=== PATIENT | male | born 1955 | race Caucasian/White ===

== ENCOUNTER 2017-10-26 07:15 | Day surgery (SDC) | payer OTHER ==
[~2017-10-26] VITALS: Ht 188 cm; Wt 95.4 kg
[2017-10-26] MEDS ORDERED: CARVEDILOL ER40 MG PO (07:43)
[2017-10-26] MEDS ORDERED: LEVODOPA25 GM (07:44)
[2017-10-26] MEDS ORDERED: ASPI81CH PO (07:44)
[2017-10-26] MEDS ORDERED: NIFE60ER PO (07:45)
[2017-10-26] MEDS ORDERED: Micro-K8 MEQ (07:45)
[2017-10-26] MEDS ORDERED: TELM40 PO (07:46)
[2017-10-26] MEDS ORDERED: SOLI5 PO (07:46)
== END 2017-10-26 09:38 | disposition home or self-care (01) ==
LOC: ORSCSDS 07:15
PROVIDERS: Internal Medicine Gastroenterology
PROC: 0DBM8ZX Excision of Descending Colon, Via Natural or Artificial Opening Endoscopic, Diagnostic (ICD-10-PCS; principal; 2017-10-26 08:30)
PROC: 0DBH8ZX Excision of Cecum, Via Natural or Artificial Opening Endoscopic, Diagnostic (ICD-10-PCS; principal; 2017-10-26 08:30)
PROC: 0DBN8ZX Excision of Sigmoid Colon, Via Natural or Artificial Opening Endoscopic, Diagnostic (ICD-10-PCS; principal; 2017-10-26 08:30)
DX: Z12.11 Encounter for screening for malignant neoplasm of colon (principal); D12.0 Benign neoplasm of cecum; D12.4 Benign neoplasm of descending colon; D12.5 Benign neoplasm of sigmoid colon; K64.8 Other hemorrhoids; I10 Essential (primary) hypertension; J45.909 Unspecified asthma, uncomplicated; G20 Parkinson's disease; Z79.82 Long term (current) use of aspirin; Z79.899 Other long term (current) drug therapy
CPT/HCPCS: 88305; J7120

== ENCOUNTER 2018-09-01 07:00 | Day surgery (SDC) | payer OTHER ==
[~2018-09-01] VITALS: Ht 188 cm; Wt 100.0 kg
[~2018-09-01 07:00] MED LIST: ASPI81CH PO; ATOR20 PO; B-121000 MC1 SL; BAYER CHEWABLE81 MG PO; CARVEDILOL ER40 MG PO; Hydrocodone-Ap1 EA23 PO; LEVODOPA25 GM; Micro-K8 MEQ; NIFE60ER PO; POTCHL10ER PO; SOLI5 PO; TELM40 PO
[2018-09-01] MEDS ORDERED: SINEMET 25-1001 EACH PO (07:28)
--- NOTE | 2018-09-01 12:03 | NUR ---
PT PREVIOUSLY UP TO RESTROOM, RIGHT FEMORAL ACCESS SITE APPEARS TO BE WNL. PT'S ASSISTING HIM WITH GETTING DRESSED AND SHOES ON. PT DENIES PAIN. VERBALIZED UNDERSTANDING OF D/C INSTRUCTIONS. IV REMOVED FROM [place] WITH CATH INTACT. PRESSURE DRESSING APPLIED. PAPERWORK PROVIDED. TAKEN OUT TO VEHICLE VIA W/C WITH NADN AT TIME OF DISPO. ENCOURAGED TO FOLLOW UP SCHEDULED. CALL FOR ANY CONCERNS TO [facility]. VSS.
== END 2018-09-01 12:49 | disposition home or self-care (01) ==
LOC: MHTC 07:00
DX: I25.119 Atherosclerotic heart disease of native coronary artery with unspecified angina pectoris (principal); I10 Essential (primary) hypertension; J45.909 Unspecified asthma, uncomplicated; G20 Parkinson's disease; M19.90 Unspecified osteoarthritis, unspecified site; Z79.899 Other long term (current) drug therapy; Z79.82 Long term (current) use of aspirin
CPT/HCPCS: 85347; 93454; 93571; 99152; 99153; C1760; C1769; C1887; J1644; J2250; J3010; J7030; Q9967

== ENCOUNTER 2019-04-23 13:55 | Emergency (ER) | payer OTHER, MEDICARE ==
[~2019-04-23] VITALS: Ht 185.4 cm; Wt 95.2 kg
[~2019-04-23 13:55] MED LIST changes: +SINEMET 25-1001 EACH PO
== END 2019-04-23 16:14 | disposition home or self-care (01) ==
LOC: ER 13:55
DX: K59.00 Constipation, unspecified (principal); Z79.899 Other long term (current) drug therapy; Z79.82 Long term (current) use of aspirin
CPT/HCPCS: 74018; 99283-25

== ENCOUNTER 2019-06-22 01:51 | Emergency (ER) | payer OTHER, MEDICARE ==
[~2019-06-22] VITALS: Ht 188 cm; Wt 90.7 kg
[2019-06-22] MEDS ORDERED: Nifediac Cc60 MG PO (02:13)
[2019-06-22] MEDS ORDERED: Nitrofurantoin100 M1 PO (02:13)
[2019-06-22] MEDS ORDERED: TRAZ50 PO (02:14)
[2019-06-22] MEDS ORDERED: TAMSULOSIN HCL0.4 M1 PO (02:14)
[2019-06-22] MEDS ORDERED: NEURONTIN300 MG PO (02:14)
[2019-06-22] MEDS ORDERED: NITR100CA PO (02:16)
[2019-06-22 02:51] LABS: BASOPHILS ABSOLUTE AUTO 0.03 K/mm3 (0.00-0.23); BASOPHILS PERCENT AUTO 1 % (0-2); EOSINOPHILS PERCENT AUTO 2 % (0-6); Hematocrit 38.2 % (37.0-53.0); Hemoglobin 13.5 g/dL (13.5-17.5); IMMATURE GRAN ABSOLUTE AUTO 0.01 K/mm3 (0.00-0.10); IMMATURE GRAN PERCENT AUTO 0 % (0-1); LYMPHOCYTES ABSOLUTE AUTO 1.77 K/mm3 (0.84-5.20); LYMPHOCYTES PERCENT AUTO 40 % (21-46); MONOCYTES ABSOLUTE AUTO 0.26 K/mm3 (0.16-1.47); MONOCYTES PERCENT AUTO 6 % (4-13); Mean Corpuscular HGB 30.5 pg (26.0-34.0); Mean Corpuscular HGB Conc 35.3 g/dL (31.5-36.5); Mean Corpuscular Volume 86 fL (80-100); NEUTROPHILS ABSOLUTE AUTO 2.21 K/mm3 (1.96-9.15); NEUTROPHILS PERCENT AUTO 51 % (41-73); Platelet Count 130 K/mm3 (150-400); RDW Coefficient Variation 13.1 % (11.7-14.2); RDW Standard Deviation 40.8 fL (35.1-46.3); Red Blood Cell Count 4.42 M/mm3 (4.30-5.90); White Blood Cell Count 4.38 K/mm3 (4.00-11.30)
[2019-06-22 03:43] LABS: Alanine Aminotransfer (ALT/SGP 6 U/L (12-78); Albumin, Blood 3.7 g/dL (3.4-5.0); Albumin/Globulin Ratio 1.5 (0.8-1.8); Alk Phos 88 U/L (50-136); Anion Gap 6 mmol/L (6-16); Aspartate Aminotrans (AST/SGOT 6 U/L (12-37); Blood Urea Nitrogen 6 mg/dL (8-24); Bun/Creatinine Ratio 9.4 (12.0-20.0); CO2, Blood 27 mmol/L (21-32); Calcium, Blood 9.1 mg/dL (8.5-10.1); Chloride, Blood 111 mmol/L (98-108); Creatinine, Blood 0.64 mg/dL (0.60-1.20); Globulin, Blood 2.4 g/dL (2.2-4.0); Glomerular Filtration Rate >60 (60-); Glucose, Blood 97 mg/dL (70-99); Potassium, Blood 2.8 mmol/L (3.5-5.5); Sodium, Blood 144 mmol/L (136-145); Total Protein, Blood 6.1 g/dL (6.4-8.2); Troponin I <0.015 ng/mL (0.000-0.040)
== END 2019-06-22 04:15 | disposition home or self-care (01) ==
LOC: ER 01:51
PROVIDERS: Emergency Medicine
DX: R42 Dizziness and giddiness (principal); T42.6X5A Adverse effect of other antiepileptic and sedative-hypnotic drugs, initial encounter; T45.0X5A Adverse effect of antiallergic and antiemetic drugs, initial encounter; G20 Parkinson's disease; Z88.2 Allergy status to sulfonamides; Z88.1 Allergy status to other antibiotic agents; Z79.899 Other long term (current) drug therapy
CPT/HCPCS: 36415; 80053; 84484; 85025; 93005; 93010; 96360; 99284-25; J7030

== ENCOUNTER 2019-06-24 22:17 | Emergency (ER) | payer OTHER, MEDICARE ==
[~2019-06-24] VITALS: Ht 185.4 cm; Wt 81.7 kg
[~2019-06-24 22:17] MED LIST changes: +NEURONTIN300 MG PO; +NITR100CA PO; +Nifediac Cc60 MG PO; +Nitrofurantoin100 M1 PO; +TAMSULOSIN HCL0.4 M1 PO; +TRAZ50 PO
[2019-06-24] MEDS ORDERED: Ambien10 MG PO (22:52)
== END 2019-06-24 23:47 | disposition home or self-care (01) ==
LOC: ER 22:17
DX: G47.00 Insomnia, unspecified (principal); R35.0 Frequency of micturition; F41.8 Other specified anxiety disorders; Z96.0 Presence of urogenital implants
CPT/HCPCS: 99283

== ENCOUNTER 2019-07-02 19:13 | Observation (INO) | payer MEDICARE, OTHER ==
[~2019-07-02] VITALS: Ht 185.4 cm; Wt 81.2 kg
[~2019-07-02 19:13] MED LIST changes: +Ambien10 MG PO
[2019-07-02 19:34] LABS: BASOPHILS ABSOLUTE AUTO 0.07 K/mm3 (0.00-0.23); BASOPHILS PERCENT AUTO 1 % (0-2); EOSINOPHILS ABSOLUTE AUTO 0.12 K/mm3 (0.00-0.68); EOSINOPHILS PERCENT AUTO 2 % (0-6); Hematocrit 42.4 % (37.0-53.0); Hemoglobin 14.9 g/dL (13.5-17.5); IMMATURE GRAN ABSOLUTE AUTO 0.01 K/mm3 (0.00-0.10); IMMATURE GRAN PERCENT AUTO 0 % (0-1); LYMPHOCYTES PERCENT AUTO 30 % (21-46); MONOCYTES ABSOLUTE AUTO 0.26 K/mm3 (0.16-1.47); MONOCYTES PERCENT AUTO 5 % (4-13); Mean Corpuscular HGB 30.4 pg (26.0-34.0); Mean Corpuscular HGB Conc 35.1 g/dL (31.5-36.5); Mean Corpuscular Volume 87 fL (80-100); NEUTROPHILS ABSOLUTE AUTO 3.34 K/mm3 (1.96-9.15); NEUTROPHILS PERCENT AUTO 62 % (41-73); Platelet Count 162 K/mm3 (150-400); RDW Coefficient Variation 12.9 % (11.7-14.2); RDW Standard Deviation 40.2 fL (35.1-46.3)
[2019-07-02 19:56] LABS: Alanine Aminotransfer (ALT/SGP 7 U/L (12-78); Albumin/Globulin Ratio 1.5 (0.8-1.8); Alk Phos 96 U/L (50-136); Anion Gap 2 mmol/L (6-16); Aspartate Aminotrans (AST/SGOT 5 U/L (12-37); Bilirubin, Total 1.3 mg/dL (0.1-1.0); Blood Urea Nitrogen 17 mg/dL (8-24); Bun/Creatinine Ratio 25.9 (12.0-20.0); CO2, Blood 29 mmol/L (21-32); Calcium, Blood 9.7 mg/dL (8.5-10.1); Chloride, Blood 106 mmol/L (98-108); Creatinine, Blood 0.66 mg/dL (0.60-1.20); Ethanol (Alcohol), Blood, Med <3 mg/dL; Globulin, Blood 2.7 g/dL (2.2-4.0); Glomerular Filtration Rate >60 (60-); Glucose, Blood 115 mg/dL (70-99); Salicylate <1.7 mg/dL (2.8-20.0); Sodium, Blood 137 mmol/L (136-145); Total Protein, Blood 6.7 g/dL (6.4-8.2)
[2019-07-02] MEDS ORDERED: CARVEDILOL6.25 MG PO (21:48)
[2019-07-02] MEDS ORDERED: TAMSULOSIN HCL0.4 M1 PO (21:50)
[2019-07-02] MEDS ORDERED: TRAZ50 PO (21:50)
[2019-07-02] MEDS ORDERED: Carbidopa-Levo1 EAC4 PO (21:51)
[2019-07-02 22:45] LABS: Acetaminophen, Random 19.2 ug/mL (10.0-30.0); Salicylate <1.7 mg/dL (2.8-20.0)
[2019-07-03] MEDS ORDERED: ATORVASTATIN CA20 MG PO (00:17)
[2019-07-03] MEDS ORDERED: LORAZEPAM1 MG PO (00:17)
[2019-07-03] MEDS ORDERED: TELMISARTAN40 MG PO (00:17)
[2019-07-03 08:23] LABS: Source, Urine Voided
[2019-07-03 08:32] LABS: Bilirubin, Urine Neg (Neg); Blood, Urine Neg (Neg); Glucose Qualitative, Urine Neg (Neg); Ketones, Urine Neg (Neg); Leukocyte Esterase, Urine Neg (Neg); Nitrite, Urine Neg (Neg); Protein, Urine Neg (Neg); Urobilinogen, Urine NORM (Normal)
[2019-07-03 08:34] LABS: Appearance, Urine Clear (Clear); Color, Urine Yellow (P-Yellow)
[2019-07-03 08:49] LABS: U Amphetamine Screen Not Detected; U Barbituate Screen Not Detected; U Benzodiazapine Screen Not Detected; U Buprenorphine Screen Not Detected; U Cannabinoids Screen Not Detected; U Cocaine Screen Not Detected; U Methadone Screen Not Detected; U Methamphetamine Screen Not Detected; U Opiates Screen DETECTED; U Oxycodone Screen Not Detected; U Propoxyphene Screen Not Detected
[2019-07-03 20:40] LABS: Hematocrit 37.5 % (37.0-53.0); Hemoglobin 13.1 g/dL (13.5-17.5)
[2019-07-03 20:58] LABS: Anion Gap 3 mmol/L (6-16); Blood Urea Nitrogen 22 mg/dL (8-24); CO2, Blood 30 mmol/L (21-32); Calcium, Blood 9.2 mg/dL (8.5-10.1); Chloride, Blood 102 mmol/L (98-108); Creatinine, Blood 0.79 mg/dL (0.60-1.20); Glomerular Filtration Rate >60 (60-); Glucose, Blood 87 mg/dL (70-99); Potassium, Blood 3.7 mmol/L (3.5-5.5); Sodium, Blood 135 mmol/L (136-145)
--- NOTE | 2019-07-04 00:12 | NUR ---
PT. ARRIVED FROM ED CRISIS UNIT. A&OX3, PLEASANT AND COOPERATIVE WITH CARE. PT. DETERMINED A LOW RISK SI. SI ASSESSMENT NEG FOR SI RISK. PT. IS A 1-2 ASSIST TO BSC. DENIES ANY PAIN OR DISCOMFORT, CALLS APPROPRIATELY. RESTING COMFORTABLY IN BED, NO APPARENT DISTRESS NOTED. CALL LIGHT WITHIN REACH, SIDE RAILS UP X2, AND BED ALARM ON FOR SAFETY. WILL CONT TO MONITOR.
--- NOTE | 2019-07-04 04:33 | NUR ---
SHIFT SUMMARY- PT. ASLEEP T/O THE NIGHT. NO APPARENT DISTRESS NOTED. NO ACUTE CHANGES TO CONDITION. CALL LIGHT WITHIN REACH, SIDE RAILS UP X2, AND BED ALARM ON FOR SAFETY. WILL CONT TO MONITOR.
--- NOTE | 2019-07-04 14:21 | NUR ---
Patient is lying in the dark and alert. Patient tells me that he was overwhelmed by the pain of his current medical issues and in despair over the progression of disease that he faces for the future. He talks about how Parkinson disease "messes with my mind." He shares about his personal struggles (mental, emotional and spiritual). Patient explains some of his latter day beliefs. I listen empathically, explore sources of meaning and value, provide emotional support, pastoral grief counselor, companionship and prayer. Patient responds well and shows signs of improved hope. I will continue to remain available to patient and family.
--- NOTE | 2019-07-04 17:32 | NUR ---
SHIFT SUMMARY PT HAS HAD NO COMPLAINTS THIS SHIFT. DR. YAÑEZ IN TO SEE PT THIS AFTERNOON AND CHANGED SEROQUEL MEDICATION DOSE FOR THE EVENING. PT UP TO BATHROOM WITH ASSIST. NO ACUTE CHANGES THIS SHIFT. WILL CONTINUE TO MONITOR AND REPORT TO ONCOMING RN. CALL LIGHT IN REACH.
--- NOTE | 2019-07-05 04:52 | NUR ---
SHIFT SUMMARY: VSS. AFEB. A/OX3. PT QUIET AND NON-COMMUNICATIVE TONIGHT. DOES NOT REPORT WET BRIEFS BUT WILL STATE WHETHER HE IS WET OR DRY WHEN ASKED. STATES URINARY INCONTINENCE IS NEW FOR HIM IN THE PAST SEVERAL WEEKS. AFFECT IS FLAT AND WITHDRAWN. PT DENYING SUICIDAL IDEATION. APPEARS TO HAVE BEEN SLEEPING MUCH OF THE NIGHT. NO ACUTE CHANGES, WILL CONT TO MONITOR.
[2019-07-05 05:26] LABS: BASOPHILS ABSOLUTE AUTO 0.04 K/mm3 (0.00-0.23); BASOPHILS PERCENT AUTO 1 % (0-2); EOSINOPHILS ABSOLUTE AUTO 0.09 K/mm3 (0.00-0.68); EOSINOPHILS PERCENT AUTO 2 % (0-6); Hemoglobin 13.1 g/dL (13.5-17.5); IMMATURE GRAN PERCENT AUTO 0 % (0-1); LYMPHOCYTES ABSOLUTE AUTO 1.47 K/mm3 (0.84-5.20); LYMPHOCYTES PERCENT AUTO 39 % (21-46); MONOCYTES ABSOLUTE AUTO 0.28 K/mm3 (0.16-1.47); MONOCYTES PERCENT AUTO 8 % (4-13); Mean Corpuscular HGB 30.5 pg (26.0-34.0); Mean Corpuscular HGB Conc 34.5 g/dL (31.5-36.5); Mean Corpuscular Volume 88 fL (80-100); Mean Platelet Volume 9.7 fL (9.1-12.4); NEUTROPHILS ABSOLUTE AUTO 1.86 K/mm3 (1.96-9.15); NEUTROPHILS PERCENT AUTO 50 % (41-73); Platelet Count 138 K/mm3 (150-400); RDW Coefficient Variation 13.1 % (11.7-14.2); RDW Standard Deviation 42.6 fL (35.1-46.3); White Blood Cell Count 3.74 K/mm3 (4.00-11.30)
[2019-07-05 05:36] LABS: Anion Gap 6 mmol/L (6-16); Blood Urea Nitrogen 24 mg/dL (8-24); Bun/Creatinine Ratio 26.1 (12.0-20.0); CO2, Blood 28 mmol/L (21-32); Calcium, Blood 9.5 mg/dL (8.5-10.1); Chloride, Blood 108 mmol/L (98-108); Creatinine, Blood 0.92 mg/dL (0.60-1.20); Glomerular Filtration Rate >60 (60-); Glucose, Blood 93 mg/dL (70-99); Potassium, Blood 3.8 mmol/L (3.5-5.5); Sodium, Blood 142 mmol/L (136-145)
[2019-07-05] MEDS ORDERED: ACET500 PO (11:37)
[2019-07-05] MEDS ORDERED: MIRALAX17 GM PO (11:37)
[2019-07-05] MEDS ORDERED: QUET100 PO (11:37)
[2019-07-05] MEDS ORDERED: QUET25 PO (11:38)
--- NOTE | 2019-07-05 15:06 | NUR ---
DISCHARGE PT DISCHARGED TO HOME. THIS RN EXPLAINED DISCHARGE INSTRUCTIONS TO PT AND PT'S SPOUSE. THEY REPORT THEY UNDERSTAND. SUICIDE HOT LINE NUMBER GIVEN TO PT. PT WAS GIVEN NAMES OF COUNSELORS FROM DR. SWANSON. PT REQUESTED TO CANCEL WHEELCHAIR RIDE. PT AND FAMILY REPORT THEY WILL BE ABLE TO GET PT UP THE TWO STAIRS INTO HIS HOUSE. RIDE WAS CANCELLED BY NALLELY. MEDICATIONS FAXED TO REQUESTED PHARMACY. PT TRANSFERRED TO PRIVATE VEHICLE VIA WHEELCHAIR BY [employer]. BELONGINGS WITH PT'S SPOUSE.
== END 2019-07-05 14:32 | disposition home health service (06) ==
LOC: ER 19:13 → EOR 19:14 → MEDS 19:14 → EOR 19:14 → MEDS 07-03 21:47 → ENPENDDIS 07-05 13:56 → MEDS 07-05 14:32
PROVIDERS: Emergency Medicine; Family Medicine; Internal Medicine; ADMIT Emergency Medicine
DX: F32.9 Major depressive disorder, single episode, unspecified (principal); G20 Parkinson's disease; T40.2X2A Poisoning by other opioids, intentional self-harm, initial encounter; T42.6X2A Poisoning by other antiepileptic and sedative-hypnotic drugs, intentional self-harm, initial encounter; I25.10 Atherosclerotic heart disease of native coronary artery without angina pectoris; I10 Essential (primary) hypertension; Z88.8 Allergy status to other drugs, medicaments and biological substances; Z88.2 Allergy status to sulfonamides; Z74.09 Other reduced mobility; Z79.899 Other long term (current) drug therapy
CPT/HCPCS: 36415; 80048; 80053; 81003; 85014; 85018; 85025; 90686; 93005; 93010; 96372; 97116; 97162; 97530; 99285-25; A9270-GY; G0008; G0378; G0480; J1650

== ENCOUNTER 2019-08-18 14:36 | Emergency (ER) | payer MEDICARE, OTHER ==
[~2019-08-18] VITALS: Ht 185.4 cm; Wt 79.4 kg
[~2019-08-18 14:36] MED LIST changes: +ACET500 PO; +ATORVASTATIN CA20 MG PO; +Ativan1 MG PO; +CARVEDILOL6.25 MG PO; +Carbidopa-Levo1 EAC4 PO; +MIRALAX17 GM PO; +QUET100 PO; +QUET25 PO; +TELMISARTAN40 MG PO
[2019-08-18 15:48] LABS: BASOPHILS ABSOLUTE AUTO 0.02 K/mm3 (0.00-0.23); BASOPHILS PERCENT AUTO 0 % (0-2); EOSINOPHILS ABSOLUTE AUTO 0.02 K/mm3 (0.00-0.68); EOSINOPHILS PERCENT AUTO 0 % (0-6); Hemoglobin 14.4 g/dL (13.5-17.5); IMMATURE GRAN ABSOLUTE AUTO 0.03 K/mm3 (0.00-0.10); IMMATURE GRAN PERCENT AUTO 0 % (0-1); LYMPHOCYTES ABSOLUTE AUTO 0.84 K/mm3 (0.84-5.20); LYMPHOCYTES PERCENT AUTO 10 % (21-46); MONOCYTES ABSOLUTE AUTO 0.29 K/mm3 (0.16-1.47); MONOCYTES PERCENT AUTO 4 % (4-13); Mean Corpuscular HGB 31.6 pg (26.0-34.0); Mean Corpuscular HGB Conc 35.1 g/dL (31.5-36.5); Mean Corpuscular Volume 90 fL (80-100); Mean Platelet Volume 9.8 fL (9.1-12.4); NEUTROPHILS ABSOLUTE AUTO 7.07 K/mm3 (1.96-9.15); NEUTROPHILS PERCENT AUTO 86 % (41-73); Platelet Count 107 K/mm3 (150-400); RDW Coefficient Variation 12.3 % (11.7-14.2); RDW Standard Deviation 40.5 fL (35.1-46.3); Red Blood Cell Count 4.55 M/mm3 (4.30-5.90); White Blood Cell Count 8.27 K/mm3 (4.00-11.30)
[2019-08-18 15:59] LABS: Alanine Aminotransfer (ALT/SGP 8 U/L (12-78); Albumin, Blood 3.2 g/dL (3.4-5.0); Alk Phos 72 U/L (50-136); Anion Gap 6 mmol/L (6-16); Aspartate Aminotrans (AST/SGOT 7 U/L (12-37); Bilirubin, Total 1.1 mg/dL (0.1-1.0); Blood Urea Nitrogen 28 mg/dL (8-24); Bun/Creatinine Ratio 26.4 (12.0-20.0); CO2, Blood 28 mmol/L (21-32); Calcium, Blood 9.6 mg/dL (8.5-10.1); Chloride, Blood 105 mmol/L (98-108); Creatinine, Blood 1.06 mg/dL (0.60-1.20); Globulin, Blood 3.2 g/dL (2.2-4.0); Glomerular Filtration Rate >60 (60-); Glucose, Blood 101 mg/dL (70-99); Potassium, Blood 3.9 mmol/L (3.5-5.5); Sodium, Blood 139 mmol/L (136-145); Total Protein, Blood 6.4 g/dL (6.4-8.2)
[2019-08-18 16:08] LABS: Bilirubin, Urine Neg (Neg); Blood, Urine 5+ (Neg); Glucose Qualitative, Urine Neg (Neg); Ketones, Urine 1+ (Neg); Leukocyte Esterase, Urine 3+ (Neg); Nitrite, Urine Pos (Neg); Protein, Urine 3+ (Neg); Source, Urine Clean Catch; Urobilinogen, Urine NORM (Normal)
[2019-08-18] MEDS ORDERED: ALPR.25 PO (16:13)
[2019-08-18 16:15] LABS: Appearance, Urine Turbid (Clear); Color, Urine Yellow (P-Yellow)
[2019-08-18] MEDS ORDERED: ESCI10 PO (16:15)
[2019-08-18 16:16] LABS: Red Blood Cells, Urine TNTC /hpf (0-2); Squamous Epithelial Cells Rare /hpf (Few); White Blood Cells, Urine TNTC /hpf (0-5)
[2019-08-18 16:17] LABS: Bacteria Many /hpf
[2019-08-18] MEDS ORDERED: TAMS.4ER PO (16:17)
[2019-08-18] MEDS ORDERED: TROSPIUM CHLORI20 MG PO (16:19)
[2019-08-18] MEDS ORDERED: ZOLP10 PO (16:19)
[2019-08-18] MEDS ORDERED: CEPH500 PO (17:45)
[2019-08-18] MEDS ORDERED: Pyridium100 MG PO (17:45)
== END 2019-08-18 18:04 | disposition home or self-care (01) ==
LOC: ER 14:36
PROVIDERS: Emergency Medicine
DX: N39.0 Urinary tract infection, site not specified (principal); G20 Parkinson's disease; I10 Essential (primary) hypertension; F32.9 Major depressive disorder, single episode, unspecified; Z88.2 Allergy status to sulfonamides; Z88.1 Allergy status to other antibiotic agents; Z79.899 Other long term (current) drug therapy
CPT/HCPCS: 36415; 51798; 74018; 80053; 81001; 85025; 87077; 87086; 87186; 96361; 96365; 99284-25; G0103; J0696; J7030

== ENCOUNTER 2019-10-05 15:20 | Observation (INO) | payer OTHER, MEDICARE ==
[~2019-10-05] VITALS: Ht 185.4 cm; Wt 73.1 kg
[~2019-10-05 15:20] MED LIST changes: +ALPR.25 PO; +CEPH500 PO; +ESCI10 PO; +Pyridium100 MG PO; +TAMS.4ER PO; +TROSPIUM CHLORI20 MG PO; +ZOLP10 PO
[2019-10-05] MEDS ORDERED: MIRALAX17 GM PO (15:35)
[2019-10-05] MEDS ORDERED: ATOR20 PO (15:35)
[2019-10-05] MEDS ORDERED: TELM40 PO (15:35)
[2019-10-05] MEDS ORDERED: ACET500 PO (15:35)
[2019-10-05] MEDS ORDERED: Carbidopa-Levo1 EAC1 PO (15:36)
[2019-10-05] MEDS ORDERED: Carbidopa-Levo1 EAC4 PO (15:36)
[2019-10-05] MEDS ORDERED: CARVEDILOL12.5 MG PO (15:38)
[2019-10-05] MEDS ORDERED: LORA.5 PO (15:39)
[2019-10-05] MEDS ORDERED: NIFE60ER PO (15:39)
[2019-10-05] MEDS ORDERED: ESCI10 PO (15:40)
[2019-10-05] MEDS ORDERED: POTA10T PO (15:40)
[2019-10-05] MEDS ORDERED: TROSPIUM CHLORI20 MG PO (15:41)
[2019-10-05] MEDS ORDERED: ZOLP10 PO (15:41)
[2019-10-05] MEDS ORDERED: Aspir 8181 MG PO (15:41)
[2019-10-05] MEDS ORDERED: ALPR.25 PO (15:42)
[2019-10-05] MEDS ORDERED: CEFU250T47 PO (15:42)
[2019-10-05] MEDS ORDERED: MIRT15 PO (15:42)
[2019-10-05 15:55] LABS: BASOPHILS ABSOLUTE AUTO 0.04 K/mm3 (0.00-0.23); BASOPHILS PERCENT AUTO 1 % (0-2); EOSINOPHILS PERCENT AUTO 2 % (0-6); Hematocrit 38.7 % (37.0-53.0); Hemoglobin 13.3 g/dL (13.5-17.5); IMMATURE GRAN ABSOLUTE AUTO 0.01 K/mm3 (0.00-0.10); IMMATURE GRAN PERCENT AUTO 0 % (0-1); LYMPHOCYTES ABSOLUTE AUTO 1.65 K/mm3 (0.84-5.20); LYMPHOCYTES PERCENT AUTO 39 % (21-46); MONOCYTES ABSOLUTE AUTO 0.15 K/mm3 (0.16-1.47); MONOCYTES PERCENT AUTO 4 % (4-13); Mean Corpuscular HGB 30.4 pg (26.0-34.0); Mean Corpuscular HGB Conc 34.4 g/dL (31.5-36.5); Mean Corpuscular Volume 89 fL (80-100); NEUTROPHILS ABSOLUTE AUTO 2.32 K/mm3 (1.96-9.15); NEUTROPHILS PERCENT AUTO 55 % (41-73); RDW Coefficient Variation 12.5 % (11.7-14.2); RDW Standard Deviation 40.7 fL (35.1-46.3); Red Blood Cell Count 4.37 M/mm3 (4.30-5.90); White Blood Cell Count 4.27 K/mm3 (4.00-11.30)
[2019-10-05 16:01] LABS: Mean Platelet Volume 9.2 fL (9.1-12.4); Platelet Count 135 K/mm3 (150-400)
[2019-10-05 16:18] LABS: Bilirubin, Urine Neg (Neg); Blood, Urine Neg (Neg); Glucose Qualitative, Urine Neg (Neg); Ketones, Urine Neg (Neg); Leukocyte Esterase, Urine 1+ (Neg); Nitrite, Urine Neg (Neg); Protein, Urine Neg (Neg); Urobilinogen, Urine NORM (Normal)
[2019-10-05 16:21] LABS: Appearance, Urine Clear (Clear); Color, Urine Yellow (P-Yellow)
[2019-10-05 16:21] LABS: Alanine Aminotransfer (ALT/SGP 7 U/L (12-78); Albumin, Blood 3.2 g/dL (3.4-5.0); Albumin/Globulin Ratio 1.1 (0.8-1.8); Alk Phos 74 U/L (50-136); Anion Gap 5 mmol/L (6-16); Aspartate Aminotrans (AST/SGOT 15 U/L (12-37); Bilirubin, Total 0.9 mg/dL (0.1-1.0); Blood Urea Nitrogen 19 mg/dL (8-24); Bun/Creatinine Ratio 26.4 (12.0-20.0); CO2, Blood 27 mmol/L (21-32); Calcium, Blood 9.4 mg/dL (8.5-10.1); Chloride, Blood 109 mmol/L (98-108); Creatinine, Blood 0.72 mg/dL (0.60-1.20); Glomerular Filtration Rate >60 (60-); Glucose, Blood 93 mg/dL (70-99); Potassium, Blood 4.3 mmol/L (3.5-5.5); Sodium, Blood 141 mmol/L (136-145); Total Protein, Blood 6.2 g/dL (6.4-8.2)
[2019-10-05 16:31] LABS: Bacteria Mod /hpf; Red Blood Cells, Urine 0-2 /hpf (0-2); Squamous Epithelial Cells Few /hpf (Few)
[2019-10-05] MEDS ORDERED: ISOSORBIDE MONO30 MG PO (17:35)
[2019-10-05] MEDS ORDERED: NITROGLYCERIN0.4 M3 SL (17:36)
[2019-10-05] MEDS ORDERED: GENERLAC10 GM/15 M PO (18:25)
--- NOTE | 2019-10-06 04:40 | NUR ---
SHIFT SUMMARY PT NEW ED ADMIT THIS EVENING. PLEASANT AND COOPERATIVE. PT VERY WEAK. PT HAS PARKINSONS AND HAS BEEN RAPIDLY DECLINING AT HOME. PT REPORTS BEING TOO WEAK TO GET OUT OF BED AT THIS TIME. REDDENED AREA TO COCCYX, POSSIBLE STAGE ONE PRESSURE ULCER. PT TURNED FREQUENTLY WHILE IN THE BED. OTHERWISE SKIN APPEARS TO C/D/I. HOME CONDOM CATH ON. NO COMPLAINTS OF PAIN THIS EVENING. VITAL SIGNS STABLE. PT REQUESTING TO SPEAK WITH SCIENTIFIC INFORMATICS LEADER REGARDING HOSPICE OPTIONS. HOSPICE REFERRAL ORDER IN.
[2019-10-06 04:48] LABS: BASOPHILS ABSOLUTE AUTO 0.04 K/mm3 (0.00-0.23); BASOPHILS PERCENT AUTO 1 % (0-2); EOSINOPHILS ABSOLUTE AUTO 0.09 K/mm3 (0.00-0.68); EOSINOPHILS PERCENT AUTO 2 % (0-6); Hematocrit 33.5 % (37.0-53.0); Hemoglobin 11.5 g/dL (13.5-17.5); IMMATURE GRAN ABSOLUTE AUTO 0.01 K/mm3 (0.00-0.10); IMMATURE GRAN PERCENT AUTO 0 % (0-1); LYMPHOCYTES ABSOLUTE AUTO 1.71 K/mm3 (0.84-5.20); LYMPHOCYTES PERCENT AUTO 45 % (21-46); MONOCYTES ABSOLUTE AUTO 0.15 K/mm3 (0.16-1.47); MONOCYTES PERCENT AUTO 4 % (4-13); Mean Corpuscular HGB 30.5 pg (26.0-34.0); Mean Corpuscular HGB Conc 34.3 g/dL (31.5-36.5); Mean Corpuscular Volume 89 fL (80-100); Mean Platelet Volume 8.7 fL (9.1-12.4); NEUTROPHILS ABSOLUTE AUTO 1.83 K/mm3 (1.96-9.15); NEUTROPHILS PERCENT AUTO 48 % (41-73); Platelet Count 125 K/mm3 (150-400); RDW Coefficient Variation 12.8 % (11.7-14.2); RDW Standard Deviation 41.2 fL (35.1-46.3); Red Blood Cell Count 3.77 M/mm3 (4.30-5.90); White Blood Cell Count 3.83 K/mm3 (4.00-11.30)
[2019-10-06 05:10] LABS: Magnesium, Blood 2.4 mg/dL (1.6-2.4)
[2019-10-06 05:53] LABS: Alanine Aminotransfer (ALT/SGP <6 U/L (12-78); Albumin/Globulin Ratio 1.3 (0.8-1.8); Alk Phos 63 U/L (50-136); Anion Gap 6 mmol/L (6-16); Aspartate Aminotrans (AST/SGOT 6 U/L (12-37); Bilirubin, Total 0.8 mg/dL (0.1-1.0); Blood Urea Nitrogen 24 mg/dL (8-24); Bun/Creatinine Ratio 27.1 (12.0-20.0); CO2, Blood 30 mmol/L (21-32); Calcium, Blood 9.6 mg/dL (8.5-10.1); Chloride, Blood 110 mmol/L (98-108); Creatinine, Blood 0.89 mg/dL (0.60-1.20); Globulin, Blood 2.3 g/dL (2.2-4.0); Glomerular Filtration Rate >60 (60-); Glucose, Blood 91 mg/dL (70-99); Potassium, Blood 3.7 mmol/L (3.5-5.5); Sodium, Blood 146 mmol/L (136-145); Total Protein, Blood 5.3 g/dL (6.4-8.2)
--- NOTE | 2019-10-06 15:41 | NUR ---
SHIFT SUMMARY PT IS A/O X 4 AND HAS NO C/O PAIN. PT REPORTS THAT HE WOULD LIKE TO GO HOME ON HOSPICE WHEN HE LEAVES THE HOSPITAL AND CARE MANAGEMENT IS AWARE. HIS HAS CALLED MULTIPLE TIMES CONCERNED ABOUT HIS PLAN OF CARE AND THE MESSAGE WAS RELAYED TO THE DOCTOR. PT STATES THAT SHE IS "OVERLY CONCERNED AND DOES NOT UNDERSTAND WHAT HE IS GOING THROUGH WITH HIS PARKINSONS." PT HAD A SPEECH EVAL THIS MORNING AND SHE RECS PUREED DIET WITH THIN LIQUIDS THAT IS WHAT HE WAS ON AT HOME AND HE IS COMFORTABLE WITH. CONDOM CATH REMAINS PATENT. PT NEEDS ASSIST WITH EATING AND ADLS AT TIMES DEPENDING ON HIS FINE MOTOR CONTROL. PT IS ABLE TO MAKE HIS NEEDS KNOWN AND CALLS FOR HELP WHEN NEEDED. HIS CALL LIGHT IS IN REACH.
--- NOTE | 2019-10-07 05:02 | NUR ---
SHIFT SUMMARY PT HAS RESTED MOST OF THE NIGHT, PT REPORTS FEELING VERY WEAK, BUT HE WAS ABLE TO HOLD A CUP TO DRINK. HE HAS OFF AND ON HEADACHES THAT ARE RELIEVED WITH TYLENOL. PT IS PLESANT AND COOPERATIVE WITH CARE AND IS VERY APPRECIATIVE OF THE CARE HE HAS RECEIVED. VITALS ARE STABLE. CONDOM CATH IN PLACE PATENT AND DRAINING. NO ACUTE CHANGES TO REPORT. BED IN LOWEST POSITION, CALL LIGHT WITHIN REACH. WILL CONTINUE TO MONITOR AND REPORT TO ONCOMING RN.
--- NOTE | 2019-10-07 06:18 | NUR ---
DISCHARGE PT REPORTS TO ME THIS AM THAT HE IN FACT WOULD LIKE TO DC HOME ON HOSPICE INSTEAD OF DISCHARGING TO A FACILITY PREVIOUSLY DISCUSSED PER DR NOTES. PT STATES THAT HE AND HIS HAD DISCUSSED YESTERDAY AND HAVE DECIDED ON THIS PLAN. PT STATES THAT MONEY WILL BE AN ISSUE, AND REQUESTS FURTHER RESOURCES TO MAKE THIS TRANSITION. HE ALSO INQUIRED ABOUT A HOSPITAL BED AND WONDERED IF THAT IS SOMETHING THAT COULD BE ARRANGED BEFORE DISCHARGED. WILL RELAY THIS INFORMATION TO THE DAYSHIFT RN SO THAT IT CAN BE ADDRESSED WITH THE ATTENDING.
--- NOTE | 2019-10-07 06:37 | NUR ---
PT COMPLAINING OF NERI. MEDICATED WITH TYLENOL WITH NO RELIEF. PT REQUESTING SOMETHING ELSE FOR PAIN. CALLED DR. MORALEZ. NO ANSWER, IF NO CALL BACK BEFORE CHANGE OF SHIFT. WILL NOTIFY DAYSHIFT RN FOR FOLLOW UP.
--- NOTE | 2019-10-07 06:59 | NUR ---
OK TO TAKE ERYTHROMYCIN WITH IV FENTANYL PER PHARMACIST ALMA DELIA ALLEN.
--- NOTE | 2019-10-07 13:33 | NUR ---
Spiritual care visit conducted. After receiving a call-back from nursing house moving supervisor, I visit patient. Patient is sitting up in bed and alert. Patient's , Keren is bedside. Patient tells me about his fears, concerns and spiritual struggles that are connected to his disease and its progression. Patient and Keren are tearful and raw. I listen empathically, normalize their experience, reinforce helpful attitudes and practices and provide emotional support, pastoral counselor marriage and family and prayer. Patient and Keren respond well and show signs of improved peace and hope. I will continue to remain available to patient and family.
--- NOTE | 2019-10-07 15:41 | NUR ---
SHIFT SUMMARY PT IS A/O X 4 AND HAS NO C/O PAIN. HE DOES CONTINUE WITH HIS TREMORS R/T HIS PARKINSON'S. AFTER THE DOCTOR MET WITH THE PT THIS MORNING HE WAS TRANSITIONED TO COMFORT CARE AND WILL DC HOME ON HOSPICE. HIS WAS NOTIFIED AND NOTIFIED THAT SHE WAS ABLE TO COME VISIT HIM. PT NEEDS MORE HELP WITH EATING AND DRINKING TODAY. CONDOM CATH IS PATENT. THE ARRIVED THIS AFTERNOON AND HAD EXTENSIVE QUESTIONS ABOUT THE COMFORT CARE PROCESS AND HOSPICE. ALL HER QUESTIONS WERE ANSWERED BUT SHE IS HAVING SOME UNEASINESS AND SHE STATED THAT SHE WAS HAVING A HARD TIME PROCESSING HER HUSBANDS ILLNESS. THIS NURSE NOTITIFIED PALLIATIVE CARE AND THE NURSE IS HERE NOW SPEAKING WITH THEM ABOUT ALL THEIR WORRIES. PT IS ABLE TO MAKE HIS NEEDS KNOWN AND CALLS FOR HELP WHEN NEEDED. HIS CALL LIGHT IS IN REACH.
--- NOTE | 2019-10-07 16:02 | NUR ---
Clinical Visit: Pt is alert, appears oriented to situation. at bedside. Hospice services reviewed. Hospice medications reviewed, ER visits reviewed, hospice revocation reviewed. Questions answered. Family reports relief from worry after our meeting. Pt has requested this morning to stop his coreg, however, he is requesting that he has it resumed. Will remain available. Pt was on [email or web address] at one time, this agency is acceptable for Hospice Services.
--- NOTE | 2019-10-08 04:54 | NUR ---
SHIFT SUMMARY NO ACUTE CHANGES TO REPORT THIS SHIFT. PT HAS RESTED COMFORTABLY, AWAKE MOST TIMES THAT I ROUNDED ON HIM. HE STATED THAT HE WAS ABLE TO GET A LITTLE BIT OF REST AFTER THE AMBIEN, BUT THAT HE DOES NOT GET MUCH SLEEP IN GENERAL. PT DENIES NEEDS WHEN ASKED. NO CALLS OR VISITS FROM FAMILY THIS SHIFT. COMFORT ASSESSED T/O SHIFT. BED IN LOWEST POSITION, CALL LIGHT WITHIN REACH. WILL CONTINUE TO MONITOR AND REPORT TO ONCOMING RN.
--- NOTE | 2019-10-08 08:06 | NUR ---
ASSUMED CARE OF PT- BEDSIDE REPORT COMPLETED WITH NIGHT RN VEL. PER REPORT PT HAS CHOSEN TO BECOME COMFORT CARE AND PLAN IS TO DISCHARGE HOME ON HOSPICE. ALSO PER REPORT THE PT IS VERY FORGETFUL, SHE WILL ASK MULTIPLE QUESTIONS, THE SAME QUESTIONS, REPEATEDLY T/O THE SHIFT AND BE UPSET BECAUSE NOONE TOLD HER THE ANSWERS BEFORE (PER REPORT). PT REPOSITIONED WITH HIPS AND HEELS FLOATED DENIES THE NEED FOR MEDICATION AT THIS TIME WILL CTM.
--- NOTE | 2019-10-08 11:30 | NUR ---
Spiritual care visit conducted. Patient is very talkative and honest today. Patient shares about the deep concerns he has for his , about hospice placement (facility vs. home and which would be easier for Keren) and about how he feels like he is at the end of himself emotionally and spiritually. This openness, led to a healthy discussion where we explored sources of meaning and purpose, made observations of Keren's marjan and strength and theorized the physical part of what dying could be like for him. I listen empathically, normalize patient's experience and provide inspirational readings for Pako Arora and the Bible and provide prayer. Patient responds well and appears to have increased hope and positive expectancy. I will continue to remain available to patient and family.
--- NOTE | 2019-10-08 16:21 | NUR ---
COMFORT CARE NOTE- PT REPOSITIONED WITH PILLOWS SEVERAL TIMES SO FAR. PT DENIES THE NEED FOR POSITION CHANGES HOWEVER TO PREVENT BREAKDOWN STAFF ARE ENCOURAGING PT TO MOVE FREQUENTLY.
--- NOTE | 2019-10-08 18:22 | NUR ---
SHIFT SUMMARY- PT JUST HAD A LARGE FORMED BM. NO FURTHER LACTULOSE IS NEEDED FOR THE DAY. PT HAS DENIED THE NEED FOR COMFORT CARE MEDICATIONS. PT SPOUSE IS AT THE BEDSIDE AND ASKS MULTIPLE QUESTIONS (THE SAME ONES) SHE IS A LITTLE FORGETFUL HERSELF, AND SHE ADMITS THAT, SHE TAKES FREQUENT NOTES, BUT HER NOTE PAPERS ARE NOT ORGANIZED SO SHE OFTEN CAN'T FIND WHAT SHE WROTE DOWN. SHE IS ANXIOUSLY AWAITING HEARING FROM THE PALLIATIVE CARE TEAM SHE WOULD LIKE TO HAVE HER DC INTO A FACILITY ON HOSPICE SHE FEELS SHE CAN NOT MEET HIS NEEDS AT HOME. WILL PASS ON TO NIGHT RN IN REPORT. PT ALERT SPEAKING TO HIS AND IS FREQUENTLY FORGETFUL.
--- NOTE | 2019-10-08 19:59 | NUR ---
191 COMFORT CARE BEDSIDE REPORT RECIEVED. @ BEDSIDE. A/O, ABLE TO MAKE NEEDS KNOWN. STATES HELPS WITH MANY CARES POSSIBLE. NO ACUTE NEEDS AT THIS TIME. BED IN LOWEST POSITION. CONDOM CATH SECURED AND DRAINING TO GRAVITY. WCTM.
--- NOTE | 2019-10-08 23:10 | NUR ---
5837 COMFORT CARE APPEARS TO BE RESTING. NO ACUTE NEEDS AT THIS TIME. BED IN LOWEST POSITION; ALARM ON. WCTM.
--- NOTE | 2019-10-08 23:47 | NUR ---
2109 COMFORT CARE APPEARS TO BE COMFORTABLE. STATES READY FOR BEDTIME MEDICATIONS; EXPLAINED THAT THIS RN WOULD BE IN SHORTLY TO GIVE HIM HIS PILLS, AGREEABLE. NO ACUTE NEEDS AT THIS TIME. BED IN LOWEST POSITION; ALARM ON. CALL LIGHT WITHIN REACH. WCTM.
--- NOTE | 2019-10-09 00:55 | NUR ---
0055 COMFORT CARE REPOSITIONED. GIVEN MIDNIGHT DOSE OF CARBIDOPA. STATED RESTING WELL. NO ACUTE NEEDS AT THIS TIME. BED IN LOWEST POSITION; ALARM ON. WCTM.
--- NOTE | 2019-10-09 03:12 | NUR ---
0312 COMFORT CARE STATES ABLE TO GET SOME REST. NO ACUTE NEEDS AT THIS TIME. REPOSITIONED SELF. BED IN LOWEST POSITION; ALARM ON. CALL LIGHT AND BELONGINGS WITHIN REACH. TM.
--- NOTE | 2019-10-09 04:26 | NUR ---
SHIFT SUMMARY ALERT, ANSWERS QUESTIONS APPROPRIATELY. COOPERATIVE WITH CARE. DOES NOT UTILIZE CALL SYSTEM. DENIES PAIN/DISCOMFORT. NO ACUTE CHANGES NOTED OVERNIGHT. UP WITH 1P ASSIST TO BSC. CONDOM CATH IN PLACE, SECURED AND DRAINING TO GRAVITY. CALL LIGHT AND BELONGINGS WITHIN REACH. BED IN LOWEST POSITION; ALARM ON. WCTM. PATIENT AND AWAITING VISIT FROM PALLIATIVE CARE AND SPIKE MAKER. REPORT TO ONCOMING RN.
--- NOTE | 2019-10-09 05:44 | NUR ---
0510 COMFORT CARE APPEARS TO BE RESTING. NO ACUTE NEEDS AT THIS TIME. BED IN LOWEST POSITION; ALARM ON. CALL LIGHT WITHIN REACH. TM.
--- NOTE | 2019-10-09 17:05 | NUR ---
PT HAS BEEN AOX3 WITH SOME CONFUSION. PT COOPERATIVE OF CARE. PT HAS BEEN UP WITH WIFES ASSISTANCE TO USE COMMODE. PT HAS BEEN DOING WELL AND DENIES ANY PAIN. WILL CONTINUE TO MONITOR.
--- NOTE | 2019-10-10 04:19 | NUR ---
FORECLOSURE HOME INSPECTOR SUMMARY PT A/O X3. PLEASANT AND COOPERATIVE. PT'S WAS HERE FOR A COUPLE OF HOURS AT BEGINNING OF SHIFT. CONDOM HELGA HAS BEEN ON ALL NIGHT PATENT AND DRAINING CLEAR YELLOW URINE. DENIES PAIN, NAUSEA AND OTHER DISCOMFORTS. FREQUENT REPOSITIONG PROVIDED.
--- NOTE | 2019-10-10 14:36 | NUR ---
Spiritual care visit conducted. Patient is lying in bed and alert with spouse, Keren, bedside. Patient tells me that he is down in spirits today and struggling with depression and anxiety. Keren says that she thinks it is because of a new medication he is on. We talk about the things that inspire patient. Joshua talks about the huge collection of CDs that he has that is full of jazz, blues and caodaism music. We talk about hospice and what is involved going home would look like with their support. We talk about their marriage, how they met, good memories and how they will face the future together. I listen empathically, encourage self-care for them both, and provide anticipatory guidance, emotional support, pastoral staff counselor and prayer. Patient responds well and displays evidence of improved hope and courage. I will continue to remain available to patient and family.
--- NOTE | 2019-10-10 17:13 | NUR ---
PT HAS BEEN AOX3 AND COOPERATIVE OF CARE. PT HAS NOT HAD ANY CHANGES. HE IS IN BED MOST OF THE DAY AND CAN MOVE AND ROLL HIMSELF. PT IN A ONE PERSON TO RESTROOM. BED ALARM IS IN PLACE, WILL CONTINUE TO MONITOR.
--- NOTE | 2019-10-11 05:09 | NUR ---
SHIFT SUMMARY- PT. ON COMFORT CARE. A&O, 1 ASSIST TO BSC. PT. CALLS APPROPRIATELY AND ABLE TO MAKE HIS NEEDS KNOWN. C/O ABD PAIN 07/23. MEDICATED PER EMAR WITH GOOD EFFECT. PT. SLEPT WELL T/O THE NIGHT. NO APPARENT DISTRESS NOTED. PLAN FOR D/C TO HOME ON HOSPICE THIS AM. CALL LIGHT WITHIN REACH AND SIDE RAILS UP X2. WILL CONT TO MONITOR.
--- NOTE | 2019-10-11 10:13 | NUR ---
I'm in the role of CNA2 student today.
--- NOTE | 2019-10-11 12:01 | NUR ---
Joint visit with HH&H Liajared Bray and Pt prior to spouse visit. Pt is A&OX4. Pt reports 7/10 pain in his abdomen. Reported Pt's pain to Bedside JEROME Smith. Engaged in therapeutic conversation regarding goals of care. Confirmed Pt wishes of hospice. Educated on hospice philosophy with V/U made by Pt. Pt's level of understanding is appropriate. Offered therapeutic listening as Pt reports his having difficulty accepting his wishes. Pt's arrives and further therapeutic discussions occured regarding discharge plan with hospice. Answered questions and discussed concerns. appears to be having a difficult time accepting Pt's wishes. Validated concerns and suggested the importance of considering Pt's wishes. Continued therapeutic listening. After several minutes of discussion spouse appears more accepting after answering questions. No other concerns reported at this time. Plan is for Pt to discharge home at approximately 1230 today. Hospice will admit Pt onto services early next week. Palliative Care will remain available.
--- NOTE | 2019-10-11 13:16 | NUR ---
PATIENT DISCHARGED HOME WITH ON HOSPICE, MEDICATIONS CALLED TO [facility].
== END 2019-10-11 12:44 | disposition hospice, home (50) ==
LOC: ER 15:20 → MEDS 19:30
PROVIDERS: Nurse Practitioner Acute Care; Student in an Organized Health Care Education/Training Program; ADMIT Hospitalist
DX: K59.00 Constipation, unspecified (principal); L89.151 Pressure ulcer of sacral region, stage 1; F32.9 Major depressive disorder, single episode, unspecified; R13.10 Dysphagia, unspecified; I10 Essential (primary) hypertension; G20 Parkinson's disease; N39.0 Urinary tract infection, site not specified; Z74.09 Other reduced mobility; Z79.899 Other long term (current) drug therapy; Z79.82 Long term (current) use of aspirin; J45.909 Unspecified asthma, uncomplicated; F41.9 Anxiety disorder, unspecified
CPT/HCPCS: 36415; 74018; 80053; 81001; 83735; 84443; 85025; 87077; 87086; 87186; 92610; 96361; 96365; 97116; 97162; 99285-25; A9270; A9270-GY; G0378; J0696; J1650; J7050; J7120

== ENCOUNTER → 2021-03-13 | Outpatient (CLI) | payer MEDICARE, OTHER ==
[~2021-03-13] MED LIST changes: +Aspir 8181 MG PO; +CARVEDILOL12.5 MG PO; +CEFU250T47 PO; +Carbidopa-Levo1 EAC1 PO; +GENERLAC10 GM/15 M PO; +ISOSORBIDE MONO30 MG PO; +LORA.5 PO; +MIRT15 PO; +NITROGLYCERIN0.4 M3 SL; +POTA10T PO
[2021-03-13 16:09] LABS: BASOPHILS ABSOLUTE AUTO 0.03 K/mm3 (0.00-0.23); EOSINOPHILS ABSOLUTE AUTO 0.04 K/mm3 (0.00-0.68); EOSINOPHILS PERCENT AUTO 1 % (0-6); LYMPHOCYTES ABSOLUTE AUTO 1.05 K/mm3 (0.84-5.20); NEUTROPHILS ABSOLUTE AUTO 1.62 K/mm3 (1.96-9.15)
[2021-03-13 16:10] LABS: BASOPHILS PERCENT AUTO 1 % (0-2); Hemoglobin 11.1 g/dL (13.5-17.5); IMMATURE GRAN PERCENT AUTO 0 % (0-1); LYMPHOCYTES PERCENT AUTO 37 % (21-46); MONOCYTES ABSOLUTE AUTO 0.08 K/mm3 (0.16-1.47); MONOCYTES PERCENT AUTO 3 % (4-13); Mean Corpuscular HGB 32.5 pg (26.0-34.0); Mean Corpuscular HGB Conc 35.8 g/dL (31.5-36.5); Mean Corpuscular Volume 91 fL (80-100); Mean Platelet Volume 8.8 fL (9.1-12.4); NEUTROPHILS PERCENT AUTO 58 % (41-73); Platelet Count 95 K/mm3 (150-400); RDW Coefficient Variation 13.6 % (11.7-14.2); RDW Standard Deviation 44.3 fL (35.1-46.3); Red Blood Cell Count 3.42 M/mm3 (4.30-5.90); White Blood Cell Count 2.87 K/mm3 (4.00-11.30)
[2021-03-13 16:35] LABS: Alanine Aminotransfer (ALT/SGP 11 U/L (12-78); Albumin, Blood 2.9 g/dL (3.4-5.0); Albumin/Globulin Ratio 1.2 (0.8-1.8); Alk Phos 62 U/L (50-136); Anion Gap 3 mmol/L (6-16); Aspartate Aminotrans (AST/SGOT 12 U/L (12-37); Bilirubin, Total 1.3 mg/dL (0.1-1.0); Blood Urea Nitrogen 36 mg/dL (8-24); Bun/Creatinine Ratio 50.1 (12.0-20.0); CO2, Blood 33 mmol/L (21-32); Calcium, Blood 9.3 mg/dL (8.5-10.1); Chloride, Blood 111 mmol/L (98-108); Creatinine, Blood 0.72 mg/dL (0.60-1.20); Globulin, Blood 2.5 g/dL (2.2-4.0); Glomerular Filtration Rate >60 (60-); Glucose, Blood 90 mg/dL (70-99); Potassium, Blood 2.7 mmol/L (3.5-5.5); Sodium, Blood 147 mmol/L (136-145); Total Protein, Blood 5.4 g/dL (6.4-8.2)
== END ==
LOC: LAB 12:45 → LAB SHORT 12:45
PROVIDERS: Family Medicine
DX: I10 Essential (primary) hypertension (principal); K64.9 Unspecified hemorrhoids; G20 Parkinson's disease; R53.82 Chronic fatigue, unspecified; Z88.2 Allergy status to sulfonamides
CPT/HCPCS: 80053; 85025

== ENCOUNTER → 2021-03-27 | Outpatient (CLI) | payer MEDICARE, OTHER ==
[2021-03-27 17:57] LABS: Hematocrit 28.1 % (37.0-53.0); Hemoglobin 10.3 g/dL (13.5-17.5); Mean Corpuscular HGB Conc 36.7 g/dL (31.5-36.5); Mean Corpuscular Volume 90 fL (80-100); Mean Platelet Volume 8.5 fL (9.1-12.4); NEUTROPHILS PERCENT AUTO 40 % (41-73); Platelet Count 87 K/mm3 (150-400); RDW Coefficient Variation 13.5 % (11.7-14.2); RDW Standard Deviation 43.7 fL (35.1-46.3); Red Blood Cell Count 3.12 M/mm3 (4.30-5.90); White Blood Cell Count 2.69 K/mm3 (4.00-11.30)
[2021-03-27 17:58] LABS: BASOPHILS ABSOLUTE AUTO 0.02 K/mm3 (0.00-0.23); BASOPHILS PERCENT AUTO 1 % (0-2); EOSINOPHILS ABSOLUTE AUTO 0.06 K/mm3 (0.00-0.68); EOSINOPHILS PERCENT AUTO 2 % (0-6); IMMATURE GRAN ABSOLUTE AUTO 0.01 K/mm3 (0.00-0.10); IMMATURE GRAN PERCENT AUTO 0 % (0-1); LYMPHOCYTES ABSOLUTE AUTO 1.46 K/mm3 (0.84-5.20); LYMPHOCYTES PERCENT AUTO 54 % (21-46); MONOCYTES ABSOLUTE AUTO 0.06 K/mm3 (0.16-1.47); MONOCYTES PERCENT AUTO 2 % (4-13); NEUTROPHILS ABSOLUTE AUTO 1.08 K/mm3 (1.96-9.15)
[2021-03-27 20:30] LABS: Ferritin, Serum 281 ng/mL (26-388); Iron Serum 67 ug/dL (65-175); Magnesium, Blood 2.1 mg/dL (1.6-2.4)
[2021-03-27 21:01] LABS: Alanine Aminotransfer (ALT/SGP 9 U/L (12-78); Albumin, Blood 2.8 g/dL (3.4-5.0); Albumin/Globulin Ratio 1.2 (0.8-1.8); Alk Phos 51 U/L (50-136); Anion Gap 1 mmol/L (6-16); Aspartate Aminotrans (AST/SGOT 8 U/L (12-37); Bilirubin, Total 1.2 mg/dL (0.1-1.0); Blood Urea Nitrogen 31 mg/dL (8-24); Bun/Creatinine Ratio 40.2 (12.0-20.0); CO2, Blood 36 mmol/L (21-32); Chloride, Blood 108 mmol/L (98-108); Creatinine, Blood 0.77 mg/dL (0.60-1.20); Globulin, Blood 2.4 g/dL (2.2-4.0); Glomerular Filtration Rate >60 (60-); Glucose, Blood 117 mg/dL (70-99); Percent Saturation 33.7 % (20.0-50.0); Potassium, Blood 3.3 mmol/L (3.5-5.5); Sodium, Blood 145 mmol/L (136-145); Total Iron Binding Capacity 199 ug/dL (250-450); Total Protein, Blood 5.2 g/dL (6.4-8.2)
== END | disposition home or self-care (01) ==
LOC: LAB 15:56 → LAB SHORT 15:56
PROVIDERS: Family Medicine
DX: G20 Parkinson's disease (principal); D51.0 Vitamin B12 deficiency anemia due to intrinsic factor deficiency; I10 Essential (primary) hypertension
CPT/HCPCS: 80053; 82607; 82728; 82746; 83540; 83550; 83735; 84443; 85025

== ENCOUNTER → 2021-04-10 | Outpatient (CLI) | payer MEDICARE, OTHER ==
[2021-04-10 15:57] LABS: Hematocrit 28.3 % (37.0-53.0); Hemoglobin 10.1 g/dL (13.5-17.5); Mean Corpuscular HGB 32.8 pg (26.0-34.0); Mean Corpuscular HGB Conc 35.7 g/dL (31.5-36.5); Mean Corpuscular Volume 92 fL (80-100); Mean Platelet Volume 8.5 fL (9.1-12.4); Platelet Count 108 K/mm3 (150-400); RDW Coefficient Variation 13.5 % (11.7-14.2); RDW Standard Deviation 44.4 fL (35.1-46.3); Red Blood Cell Count 3.08 M/mm3 (4.30-5.90); White Blood Cell Count 2.23 K/mm3 (4.00-11.30)
[2021-04-10 16:18] LABS: BASOPHILS PERCENT MAN 0 % (0-2); EOSINOPHILS ABSOLUTE MAN 0.02 K/mm3 (0.00-0.68); EOSINOPHILS PERCENT MAN 1 % (0-6); LYMPHOCYTES PERCENT MAN 54 % (21-46); MONOCYTES PERCENT MAN 0 % (4-13); SEG NEUTROPHILS PERCENT MAN 45 % (41-73); TOTAL CELLS COUNTED 100
[2021-04-10 16:19] LABS: Anion Gap 2 mmol/L (6-16); Blood Urea Nitrogen 28 mg/dL (8-24); Bun/Creatinine Ratio 39.2 (12.0-20.0); CO2, Blood 33 mmol/L (21-32); Calcium, Blood 9.3 mg/dL (8.5-10.1); Chloride, Blood 111 mmol/L (98-108); Creatinine, Blood 0.72 mg/dL (0.60-1.20); Glomerular Filtration Rate >60 (60-); Glucose, Blood 95 mg/dL (70-99); Potassium, Blood 4.1 mmol/L (3.5-5.5); Sodium, Blood 146 mmol/L (136-145)
== END | disposition home or self-care (01) ==
LOC: LAB HH 15:51 → LAB 15:51
PROVIDERS: Family Medicine
DX: E87.6 Hypokalemia (principal); D61.818 Other pancytopenia
CPT/HCPCS: 80048; 85025